=== PATIENT | male | born 2000 | race African-American/Black ===

== ENCOUNTER 2020-07-12 09:54 | Emergency (ER) | payer MEDICAID ==
[~2020-07-12] VITALS: Ht 180.3 cm; Wt 59.0 kg
[~2020-07-12 09:54] MED LIST: ALBUTEROL; MOTRIN
[2020-07-12 09:56] VITALS: BP 114/80
== END 2020-07-12 10:41 | disposition home or self-care (01) ==
LOC: ER 10:03
DX: Z76.0 Encounter for issue of repeat prescription (principal); R56.9 Unspecified convulsions
CPT/HCPCS: 99281

== ENCOUNTER 2020-12-24 09:58 | Emergency (ER) | payer MEDICAID ==
[~2020-12-24] VITALS: Ht 185.4 cm; Wt 57.0 kg
[2020-12-24] MEDS ORDERED: OXCARBAZEPINE 300MG TABLET PO STA (10:09)
[2020-12-24] MEDS ORDERED: SODIUM CHLORIDE 0.9% 1,000 ML IV ONE (10:15)
[2020-12-24 10:29] LABS: BASOPHILS % 0.3 % (0.0-2.0); EOSINOPHILS % 0.2 % (0.0-5.0); HEMATOCRIT. 47.4 % (42.0-52.0); HEMOGLOBIN. 15.9 g/dL (14.0-18.0); MEAN CORPUSCULAR HEMOGLOBIN 32.2 pg (28.0-32.0); MEAN CORPUSCULAR VOLUME 95.9 fL (80.0-94.0); NEUTROPHILS % 80.5 % (40.0-76.0); PLATELET 170 x1000/uL (130-400); RED BLOOD CELL COUNT 4.94 mill/uL (4.7-6.1); RED CELL DISTRIBUTION WIDTH 14.4 % (11.6-14.6)
[2020-12-24 10:35] LABS: CHLORIDE 110 mEq/L (98-107)
[2020-12-24 10:39] LABS: ETHANOL BLOOD < 10 mg/dL
[2020-12-24] MEDS ORDERED: LACOSAMIDE 100 MG TABLET PO NR (11:15)
[2020-12-24] MEDS ORDERED: LORAZEPAM 2MG/ML CPJ IV ONE ×2 (13:00→15:15)
[2020-12-24] MEDS ORDERED: OXCA600T5 MT (14:52)
[2020-12-24] MEDS ORDERED: LACO100T2 MT (14:52)
[2020-12-24 16:42] LABS: *BARBITURATES SCREEN URINE NEGATIVE (NEGATIVE)
[2020-12-24 16:43] LABS: *AMPHETAMINES SCREEN URINE NEGATIVE (NEGATIVE); *BENZODIAZEPINES SCREEN URINE NEGATIVE (NEGATIVE); *COCAINE SCREEN URINE NEGATIVE (NEGATIVE); METHADONE URINE SCREEN NEGATIVE (NEGATIVE); OPIATES URINE SCREEN NEGATIVE (NEGATIVE); PHENCYCLIDINE URINE SCREEN NEGATIVE (NEGATIVE)
[2020-12-24 16:44] LABS: CANNABINOID URINE SCREEN PRESUMTIVE POSITIVE (NEGATIVE)
[2020-12-24 18:00] VITALS: BP 111/67
[2020-12-25] MEDS ORDERED: OXCA600T5 MT (08:37)
== END 2020-12-24 18:15 | disposition left against medical advice (07) ==
LOC: ER 09:58 → EDBEDREQ 16:05 → ER 18:15 → CANBEDREQ 20:19
DX: G40.909 Epilepsy, unspecified, not intractable, without status epilepticus (principal); Z91.14 Patient's other noncompliance with medication regimen; F12.10 Cannabis abuse, uncomplicated
CPT/HCPCS: 36415; 80053; 80305; 80320; 80339; 85025; 93005; 96361; 96374; 96376; 99291; J2060; J7030; Z7610; G0480

== ENCOUNTER 2020-12-25 04:37 | Emergency (ER) | payer MEDICAID ==
[~2020-12-25] VITALS: Ht 180.3 cm; Wt 77.0 kg
[~2020-12-25 04:37] MED LIST changes: +LACO100T2 MT; +OXCA600T5 MT
[2020-12-25] MEDS ORDERED: SODIUM CHLORIDE 0.9% 1,000 ML IV ONE (06:15)
[2020-12-25] MEDS ORDERED: LORAZEPAM 2MG/ML CPJ IV ONE (06:15)
[2020-12-25 06:28] LABS: BASOPHILS % 0.1 % (0.0-2.0); EOSINOPHILS % 0.2 % (0.0-5.0); HEMATOCRIT. 45.3 % (42.0-52.0); HEMOGLOBIN. 15.1 g/dL (14.0-18.0); LYMPHOCYTES % 7.2 % (20.0-50.0); MEAN CORPUSCULAR HEMOGLOBIN 31.3 pg (28.0-32.0); MEAN CORPUSCULAR VOLUME 94.1 fL (80.0-94.0); MEAN PLATELET VOLUME 7.9 fl (7.4-10.4); NEUTROPHILS % 86.5 % (40.0-76.0); PLATELET 172 x1000/uL (130-400); RED BLOOD CELL COUNT 4.82 mill/uL (4.7-6.1); RED CELL DISTRIBUTION WIDTH 14.7 % (11.6-14.6)
[2020-12-25 06:35] LABS: CHLORIDE 110 mEq/L (98-107)
[2020-12-25 06:41] LABS: ETHANOL BLOOD < 10 mg/dL
[2020-12-25] MEDS ORDERED: OXCA600T5 MT (08:37)
[2020-12-25] MEDS ORDERED: OXCARBAZEPINE 300MG TABLET PO SCH (09:00)
[2020-12-25 09:13] VITALS: BP 98/52
== END 2020-12-25 14:20 | disposition home or self-care (01) ==
LOC: ER 04:37
DX: R56.9 Unspecified convulsions (principal); F12.10 Cannabis abuse, uncomplicated
CPT/HCPCS: 36415; 80053; 80320; 85025; 96374; 99283; J2060; J7030; Z7610; G0480

== ENCOUNTER 2021-03-25 17:09 | Emergency (ER) | payer MEDICAID ==
[~2021-03-25] VITALS: Ht 170.2 cm; Wt 61.0 kg
[2021-03-25] MEDS ORDERED: SODIUM CHLORIDE 0.9% 1,000 ML IV ONE (20:30)
[2021-03-25 21:06] LABS: BASOPHILS % 0.5 % (0.0-2.0); HEMATOCRIT. 42.9 % (42.0-52.0); HEMOGLOBIN. 14.4 g/dL (14.0-18.0); LYMPHOCYTES % 17.7 % (20.0-50.0); MEAN CORPUSCULAR HEMOGLOBIN 31.6 pg (28.0-32.0); MEAN CORPUSCULAR VOLUME 94.2 fL (80.0-94.0); MEAN PLATELET VOLUME 8.3 fl (7.4-10.4); MONOCYTES % 5.5 % (2.0-8.0); NEUTROPHILS % 76.3 % (40.0-76.0); PLATELET 175 x1000/uL (130-400); RED BLOOD CELL COUNT 4.56 mill/uL (4.7-6.1); RED CELL DISTRIBUTION WIDTH 13.7 % (11.6-14.6)
[2021-03-25 21:07] LABS: CHLORIDE 114 mEq/L (98-107)
[2021-03-25 21:10] LABS: ETHANOL BLOOD < 10 mg/dL
[2021-03-25 22:01] VITALS: BP 121/73
== END 2021-03-25 22:48 | disposition home or self-care (01) ==
LOC: ER 17:37
DX: G40.909 Epilepsy, unspecified, not intractable, without status epilepticus (principal)
CPT/HCPCS: 36415; 80053; 80320; 85025; 96360; 99283; J7030; G0480

== ENCOUNTER 2021-10-10 21:57 | Emergency (ER) | payer MEDICAID ==
[~2021-10-10] VITALS: Ht 182.9 cm; Wt 73.0 kg
[2021-10-10 23:40] VITALS: BP 134/75
== END 2021-10-10 23:41 | disposition home or self-care (01) ==
LOC: ER 21:57
DX: R56.9 Unspecified convulsions (principal); Z91.14 Patient's other noncompliance with medication regimen; F17.210 Nicotine dependence, cigarettes, uncomplicated
CPT/HCPCS: 82962; 99283

== ENCOUNTER 2022-01-08 03:43 | Emergency (ER) | payer MEDICAID ==
[~2022-01-08] VITALS: Ht 177.8 cm; Wt 70.0 kg
[2022-01-08] MEDS ORDERED: LEVETIRACETAM 1000MG PREMIX 100 ML IV ONE (04:00)
[2022-01-08] MEDS ORDERED: LORAZEPAM 2MG/ML CPJ IV ONE (04:00)
[2022-01-08 04:18] LABS: BASOPHILS % 0.3 % (0.0-2.0); EOSINOPHILS % 0.6 % (0.0-5.0); HEMATOCRIT. 45.2 % (42.0-52.0); LYMPHOCYTES % 34.8 % (20.0-50.0); MEAN CORPUSCULAR HEMOGLOBIN 31.9 pg (28.0-32.0); MEAN CORPUSCULAR VOLUME 96.3 fL (80.0-94.0); MEAN PLATELET VOLUME 7.5 fl (7.4-10.4); MONOCYTES % 7.7 % (2.0-8.0); NEUTROPHILS % 56.6 % (40.0-76.0); PLATELET 186 x1000/uL (130-400); RED BLOOD CELL COUNT 4.69 mill/uL (4.7-6.1); RED CELL DISTRIBUTION WIDTH 14.7 % (11.6-14.6)
[2022-01-08 04:26] LABS: CHLORIDE 109 mEq/L (98-107)
[2022-01-08 04:33] LABS: ETHANOL BLOOD < 10 mg/dL
[2022-01-08 12:30] VITALS: BP 112/76
== END 2022-01-08 12:35 | disposition left against medical advice (07) ==
LOC: ER 03:43 → CANBEDREQ 12:41
DX: G40.909 Epilepsy, unspecified, not intractable, without status epilepticus (principal); G93.40 Encephalopathy, unspecified; I49.8 Other specified cardiac arrhythmias
CPT/HCPCS: 36415; 70450; 80053; 80320; 85025; 93005; 96365; 96375; 99285; J1953; J2060; G0480